=== PATIENT | male | born 1985 | race Caucasian/White ===

== ENCOUNTER 2021-07-18 12:50 | Outpatient (REF) | payer MEDICAID, SELFPAY ==
--- NOTE | 2021-07-18 16:40 | MHC.AU.AEV ---
Adult Audiological Evaluation Date of Visit: 07/18/21 Reason for Appointment: Audiological evaluation due to concerns for auditory processing deficits. Patient, preferred name Libby and referred to by such for the remainder of this report, reports difficulties understanding speech, especially in difficult listening environments (i.e. background noise). She notes that she can hear sounds well, but she can't always understand what is being said. She also reports significant sensitivity to certain sounds, which can be painful, incredibly bothersome, and cause distress and anxiety. 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 Libby cited information from a number of studies that have indicated that the combination of jet fuel (due to the hydrocarbons within it) and significant noise exposure can lead to significant impairment in auditory processing. There are are number of research articles on the internet and information on the [employer] website to corroborate this information. Does patient feel they have a hearing loss?: Yes If Yes, Which Ear?: Both Ears When Was Hearing Difficulty First Noticed?: While and after serving in the [employer]. Did not note any difficulties prior to service. Has hearing been tested previously?: Yes [facility]. Noted normal hearing in both ears. Prior testing not available for review. Hearing Handicap Inventory Does a hearing problem cause you to feel embarrassed when meeting new people?: Yes Does a hearing problem cause you to feel frustrated when talking to members of your family?: Yes Do you have difficulty when someone speaks in a whisper?: Yes Do you feel handicapped by a hearing problem?: Yes Does a hearing problem cause you difficulty when visiting friends, relatives, or neighbors?: Yes Does a hearing problem cause you to attend confucianist service services less often than you would like?: No Does a hearing problem cause you to have arguments with family members?: Yes Does a hearing problem cause you difficulty when listening to TV or radio?: Yes Do you feel that any difficult with your hearing limits or hampers your personal or social life?: Yes Does a hearing problem cause you difficulty when in a restaurants with relatives or friends?: Yes HHIE SCORE: 36 Based on HHIE score, patient has: Severe perceived hearing handicap Ear History: Previous Ear Surgery: Lobe reduction surgery, 01/03/2021 Bothersome Tinnitus/Ringing/Noises in Ears: Both Ears History: Branch: [employer] Years in : 4-8 Years Medical History: Medical History: Headache, High Blood Pressure Medical History: Left knee surgery 2005, VFS 04/2020, FFS & breast augmentation 12/2020 Allergies: cat, dog, bed bug, berumen, four different molds, mounika inhibitors Medication List: Amlodipine 5 mg, Estrodial 4 mg Otoscopy: Right Ear: Unremarkable Left Ear: Unremarkable Tympanometry: Tympanometry performed due to: To assess integrity of the middle ear system Right Ear: Normal Middle Ear System (Type A) Left Ear: Normal Middle Ear System (Type A) Otoacoustic Emissions Frequency Range Used: 1.6-8 kHz Right Ear Results: Normal at 1.6, 2.5, & 4.5 kHz. Reduced at 2, 3.2-4, & 5-5.6 kHz. Libby could not tolerate the highest pitch tones in the right ear and removed the probe tip from her ear before testing was complete for 2265-3305 Hz. Analysis: Reduced/Absent emissions suggest cochlear dysfunction Left Ear Results: Normal @ 1.6-2k Hz. Reduced at 2.5-8 k Hz. Analysis: Reduced/Absent emissions suggest cochlear dysfunction Hearing Evaluation: Transducer(s) Used: Insert Earphones Method: Conventional Audiometry Stimuli Used: Pure Tones Right Ear: Description of Hearing: Normal hearing from 250-8000 Hz. Uncomfortable levels (UCLs) were recorded and indicate a significantly impaired tolerance for sound, particularly for high-frequency tones. UCLs were recorded at: 75 dBHL at 250 Hz, 80 dBHL at 500 Hz, 65 dBHL at 1000 & 2000 Hz, 50 dBHL at 4000 Hz, 25 dBHL at 6000 Hz, and 15 dBHL at 8000 Hz. Left Ear: Description of Hearing: Normal hearing from 250-8000 Hz. Uncomfortable levels (UCLs) were recorded and indicate a significantly impaired tolerance for sound, particularly for high-frequency tones. UCLs were recorded at: 80 dBHL at 250 Hz, 85 dBHL at 500 Hz, 60 dBHL at 1000 Hz, 65 at 2000 Hz, 50 dBHL at 4000 Hz, 45 dBHL at 6000 Hz, and 35 dBHL at 8000 Hz. Speech Recognition Threshold (SRT): Method Used: Monitored Live Voice Stimuli Used: Spondee Words Right Ear: 15 dBHL Left Ear: 10 dBHL Word Discrimination: Method: Recorded Lists Word Lists Used:: NU-6 Right Ear: 96% at 50 dBHL Left Ear: 96% at 50 dBHL QuickSIN: 6 dB SNR loss when present binaurally at 60 dBHL, indicating mild difficulties for [id number] understanding. SCAN-3 for Adolescents and Adults: Test for Auditory Processing Disorders (SCAN-3 A): This is a screening test to determine if an adult is at risk for an Auditory Processing Disorder. The screening evaluates three areas of Auditory Processing skills and is scored by an age-appropriate Pass/Fail criterion. Gap Detection Test: This is a test of Temporal Processing and measures the ability to detect brief gaps of silence of different durations. The listener must be able to hear 2 tones during 3 or more consecutive presentations of test stimuli. Libby passed the Gap Detection Test hearing 2 tones in 4 consecutive presentations. Auditory Figure-Ground 0 dB: Listening in Noise skills are assessed with this test and identifies the ability to understand speech in the presence of background noise. A 34-year old listener must be able to properly understand 27 or more words out of 40 presented. Libby passed the Auditory Figure-Ground Test with a score of 29. Competing Words-Free Recall: This test looks at Dichotic Listening skills and the ability to process competing speech signals. Monosyllabic words are presented to each ear at the same time. The 34-year old listener must repeat 26 or more of the 40 words presented. Libby passed with a score of 29 for the Competing Words-Free Recall test. Interpretation of Results: Significant reduced UCLs and patient report for sensitivity to sounds is suggestive of hyperacusis. It should also be noted that during OAE testing, patient could not tolerate listening to the higher-pitch sounds and removed the probe tip from her right ear at 8021-9922 Hz. Though she appeared distressed for these tones in her left ear, she was able to leave the probe tip in her ear for the full OAE test. Intolerance of sounds to this degree can have a significant impact on an individuals well-being. If she is not able to tolerate sounds even at a normal conversational level, it can impact her ability to socialize, be in the presence of background, and can cause more stress and anxiety. It is also possible that if the patient is unable to tolerate listening to sounds, she may not be able to fully retain the entire speech signal, which may be impacting her speech understanding ability. Today's auditory processing testing was conducted at a normal conversational volume, and indicated normal auditory processing abilities. However, patient did not find that the volume or sounds of these tests were bothersome, and therefore was able to fully participate in the auditory processing screening. It is possible that if it were a louder presentation or included sounds in the background that she found bothersome, she may have performed more poorly on these tests. Recommendations: Audiological re-evaluation if changes are noted. Referral to Ear, Nose, and Throat is recommended to address possible hyperacusis. 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
== END 2021-07-18 12:51 | disposition home or self-care (01) ==
LOC: HO.SH 12:50
PROVIDERS: Visit Provider Internal Medicine
DX: H93.293 Other abnormal auditory perceptions, bilateral (principal); H93.233 Hyperacusis, bilateral
CPT/HCPCS: 92552; 92556; 92567; 92588; 92700

== ENCOUNTER 2022-04-17 13:58 | Outpatient (REF) | payer MEDICAID, SELFPAY ==
--- NOTE | 2022-04-17 15:08 | MHC.AU.AEV ---
Adult Audiological Evaluation Date of Visit: 04/17/22 Reason for Appointment: Audiological evaluation due to concerns for decreased hearing and hyperacusis. Libby reports that her hearing has been getting worse since her previous visit (07/18/2021) and she is becoming even more sensitive to sounds. She notes that she can't be around groups of people because the noise is overwhelming and greatly triggers her anxiety. Changes to her medical history include frequent severe headaches and a change in blood pressure medications. Case history as reported at her previous visit is as follows: Libby reports difficulties understanding speech, especially in difficult listening environments (i.e. background noise). She notes that she can hear sounds well, but she can't always understand what is being said. She also reports significant sensitivity to certain sounds, which can be painful, incredibly bothersome, and cause distress and anxiety. 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 Libby cited information from a number of studies that have indicated that the combination of jet fuel (due to the hydrocarbons within it) and significant noise exposure can lead to significant impairment in auditory processing. There are are number of research articles on the internet and information on the [employer] website to corroborate this information. Does patient feel they have a hearing loss?: Yes If Yes, Which Ear?: Both Ears When Was Hearing Difficulty First Noticed?: While and after serving in the [employer]. Did not note any difficulties prior to service. Has hearing been tested previously?: Yes Previous Hearing Test Results: [facility], 07/18/2021- Normal middle-ear function bilaterally. Reduced otoacoustic emissions bilaterally, removed probe tip from her ear for the highest pitch tones in the right ear as she could not tolerate them. Normal hearing sensitivity bilaterally. Uncomfortable levels (UCLs) indicate an impaired tolerance for sound, particularly for high-frequency tones, bilaterally. Ear History: Previous Ear Surgery: Lobe reduction surgery, 01/03/2021 Medical History: Medical History: Headache, High Blood Pressure Medical History: Left knee surgery 2005, VFS 04/2020, FFS & breast augmentation 12/2020 Allergies: cat, dog, bed bug, berumen, four different molds, mounika inhibitors Medication List: Amlodipine, amlodipine/losartan, now taking less estrogen, no longer taking T socorro Otoscopy: Right Ear: Unremarkable Left Ear: Unremarkable Tympanometry: Tympanometry performed due to: Right Ear: Patient Did Not Tolerate Tympanometry Left Ear: Patient Did Not Tolerate Tympanometry Otoacoustic Emissions Right Ear Results: Could not test due to patient intolerance Left Ear Results: Could not test due to patient intolerance Hearing Evaluation: Transducer(s) Used: Insert Earphones, Bone Conduction Method: Conventional Audiometry Stimuli Used: Pure Tones Right Ear: Description of Hearing: Mild sensorineural hearing loss from 250-500 Hz, rising to normal hearing from 6068-5757 Hz. Uncomfortable levels (UCLs) were recorded and indicate a significantly impaired tolerance for sound, particularly for high-frequency tones. Volunteered UCLs were recorded at: 60 dBHL at 250 Hz, 55 dBHL at 500 Hz, 45 dBHL at 1000, 35 dBHL at 2000 Hz, 20dBHL at 4000 Hz (same level as threshold), 15 dBHL at 6000 Hz (same level as threshold), and -5 dBHL at 8000 Hz (10 dBHL below threshold). Left Ear: Description of Hearing: Borderline-normal hearing rising to normal hearing from 250-8000 Hz. Uncomfortable levels (UCLs) were recorded and indicate a significantly impaired tolerance for sound, particularly for high-frequency tones. Volunteered UCLs were recorded at: 65 dBHL at 250 Hz, 55 dBHL at 500 Hz, 50 dBHL at 1000, 35 dBHL at 2000 Hz, 25 dBHL at 4000 Hz, 10 dBHL at 6000 Hz (5 dBHL below threshold), and 0 dBHL at 8000 Hz (5 dBHL below threshold). Speech Recognition Threshold (SRT): Method Used: Monitored Live Voice Stimuli Used: Spondee Words Right Ear: 30 dBHL Left Ear: 30 dBHL Word Discrimination: Method: Recorded Lists Word Lists Used: NU-6 Right Ear: 68% at 60 dBHL Left Ear: 80% at 60 dBHL Note: Would not tolerate speech testing above 60 dBHL. Many missed words she did not guess for and said I don't know . She seemed exasperated throughout speech testing. QuickSIN: 14 dB SNR loss when presented binaurally at 60 dBHL, suggestive of a moderate [id number] understanding deficit. Missed parts of sentences even in the easier conditions. Comparison: Compared to most recent evaluation: Compared to testing from 07/18/2021, low-frequency thresholds have decreased by 10 dBHL bilaterally from 250-1000 Hz. UCLs have lowered significant compared to previously reported UCLs. Libby performed more poorly on speech discrimination in quiet, with scores of 96% at 50 dBHL bilaterally at her last visit. She also performed more poorly on the QuickSIN test compared to a 6 dB SNR loss at her last visit. Interpretation of Results: Today's evaluation suggests decreased hearing and decreased tolerance for sound. Volunteered responses were overall consistent for both thresholds and UCLs, though it is noted that she indicated UCLs at levels below offered thresholds. Speech testing was significantly worse than last visit, both in quiet and in noise, and often seemed exasperated and would just say I don't know . Additionally, she would not tolerate tympanometry or otoacoustic emissions testing at all today and immediately pulled the probe tip out when tympanometry was attempted on the left ear, meaning objective test results could not be obtained today. Recommendations: Audiological re-evaluation if changes are noted. [facility] or [facility] for additional [facility], i.e. tinnitus management, counseling to address with the emotional effects of hearing difficulties, etc. Also recommended she research hyperacusis management programs that may be offered online. 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
== END 2022-04-17 13:59 | disposition home or self-care (01) ==
LOC: HO.SH 13:58
PROVIDERS: Visit Provider Internal Medicine
DX: Z01.118 Encounter for examination of ears and hearing with other abnormal findings (principal); H93.233 Hyperacusis, bilateral; H90.41 Sensorineural hearing loss, unilateral, right ear, with unrestricted hearing on the contralateral side
CPT/HCPCS: 92557; 92567; 92700